=== PATIENT | male | born 1980 | race Caucasian/White ===

== ENCOUNTER 2025-05-29 12:18 | Emergency (ER) | payer SELFPAY ==
[~2025-05-29] VITALS: Ht 170.2 cm; Wt 100.0 kg
[2025-05-29 12:29] VITALS: O2SAT 99
[2025-05-29 14:26] VITALS: BP 150/101; PULSE 99; RESP 16; TEMP 37; O2SAT 99
== END 2025-05-29 14:27 | disposition home or self-care (01) ==
LOC: ER 12:18
DX: S93.401A Sprain of unspecified ligament of right ankle, initial encounter (principal); Z98.890 Other specified postprocedural states; X50.1XXA Overexertion from prolonged static or awkward postures, initial encounter; Y93.89 Activity, other specified; Y92.89 Other specified places as the place of occurrence of the external cause; Y99.8 Other external cause status
CPT/HCPCS: 73600; 99283